=== PATIENT | male | born 1985 | race Caucasian/White ===

== ENCOUNTER 2016-05-02 18:14 | Emergency (ER) | payer MEDICAID, OTHER ==
[~2016-05-02] VITALS: Ht 177.8 cm; Wt 71.8 kg
[~2016-05-02 18:14] MED LIST: PALI156D IM
[2016-05-02 19:29] LABS: ANION GAP 13 mmol/L (8-16); CALCIUM, TOTAL 9.1 mg/dL (8.8-10.5); CARBON DIOXIDE 25 mmol/L (22-29); CHLORIDE 101 mmol/L (98-107); CREATININE 0.95 mg/dL (0.60-1.30); GLOMERULAR FILTR. RATE CALC > 60 mL/min (>60); POTASSIUM 3.5 mmol/L (3.5-5.1); SODIUM SERUM 139 mmol/L (136-145); UREA NITROGEN, BLOOD 11 mg/dL (7-18)
[2016-05-02 19:35] LABS: ALANINE AMINOTRANSFERASE 26 U/L (12-78); ALBUMIN 4.4 g/dL (3.4-5.0); ASPARTATE AMINOTRANSFERASE 60 U/L (15-37); BILIRUBIN,TOTAL 0.4 mg/dL (0.1-1.0); TOTAL PROTEIN, SERUM 8.1 g/dL (6.4-8.2)
[2016-05-02 19:53] LABS: BASOPHILS % (AUTO) 0.2 % (0.0-2.0); EOSINOPHILS % (AUTO) 0.3 % (1.0-6.0); HEMATOCRIT 37.2 % (41-53); HEMOGLOBIN 12.6 g/dL (13.5-17.5); LYMPHOCYTES # (AUTO) 2.4 K/uL (1.0-4.8); LYMPHOCYTES % (AUTO) 18.7 % (22.0-44.0); MEAN CORPUSCULAR HEMOGLOBIN 29.4 pg (26.0-34.0); MEAN CORPUSCULAR HGB CONC 33.7 G/dL (31.0-37.0); MEAN CORPUSCULAR VOLUME 87 fL (80-100); MONOCYTES # (AUTO) 0.7 K/uL (0.1-1.0); MONOCYTES % (AUTO) 5.4 % (2.0-9.0); NEUTROPHILS # (AUTO) 9.7 K/uL (1.8-7.7); NEUTROPHILS % (AUTO) 75.4 % (40.0-70.0); PLATELET COUNT (AUTO) 306 K/uL (150-450); RED BLOOD CELL COUNT(AUTO) 4.27 MIL/uL (4.50-5.90); RED CELL DISTRIBUTION WIDTH 12.6 % (11.5-14.5); WHITE BLOOD COUNT (AUTO) 12.9 K/uL (4.5-11.0)
[2016-05-02] MEDS ORDERED: HALOPERIDOL 5 MG TABLET PO ONE (21:00)
[2016-05-02] MEDS ORDERED: LORazepam 2 MG TABLET PO ONE (21:00)
[2016-05-02] MEDS ORDERED: DiphenhydrAMINE HCL 25 MG CAPSULE PO ONE (21:00)
[2016-05-02 22:10] VITALS: BP 141/89
[2016-08-09] MEDS ORDERED: RISP4 PO (03:36)
[2016-08-09] MEDS ORDERED: HALO5 PO (03:36)
[2016-08-09] MEDS ORDERED: BENZ1TAB10 PO (03:36)
[2016-08-09] MEDS ORDERED: DIVA500T35 PO (03:36)
== END 2016-05-02 22:19 | disposition home or self-care (01) ==
LOC: EMS 18:15
DX: F15.10 Other stimulant abuse, uncomplicated (principal); F41.9 Anxiety disorder, unspecified; F20.9 Schizophrenia, unspecified; F12.90 Cannabis use, unspecified, uncomplicated
CPT/HCPCS: 36415; 80053; 80307; 85025; 99284; G0480

== ENCOUNTER 2016-08-21 11:05 | Inpatient (IN) | payer MEDICARE, MEDICAID ==
[~2016-08-21] VITALS: Ht 180.3 cm; Wt 97.4 kg
[~2016-08-21 11:05] MED LIST changes: +BENZ1TAB10 PO; +DIVA500T35 PO; +HALO5 PO; +RISP4 PO
[2016-08-21 12:43] VITALS: BP 127/73
[2016-08-21 15:30] VITALS: BP 113/59
[2016-08-21 16:05] VITALS: BP 113/59
[2016-08-21] MEDS: BENZTROPINE MESYLATE 1 MG TABLET PO SCH (17:40)
[2016-08-21] MEDS: LORazepam 2 MG TABLET PO PRN (20:32)
[2016-08-21] MEDS: QUEtiapine FUMARATE 200 MG TABLET PO SCH (20:42)
[2016-08-21] MEDS ORDERED: DIVALPROEX SODIUM 500 MG DR TABLET PO SCH (21:00)
[2016-08-22 06:49] LABS: ALANINE AMINOTRANSFERASE 31 U/L (12-78); ALBUMIN 2.9 g/dL (3.4-5.0); ANION GAP 7 mmol/L (8-16); ASPARTATE AMINOTRANSFERASE 14 U/L (15-37); BILIRUBIN,TOTAL 0.2 mg/dL (0.1-1.0); CALCIUM, TOTAL 8.4 mg/dL (8.8-10.5); CARBON DIOXIDE 29 mmol/L (22-29); CHLORIDE 103 mmol/L (98-107); CHOL/HDL RATIO 8.6 (4.2-7.3); CREATINE KINASE, TOTAL 73 U/L (39-308); CREATININE 0.82 mg/dL (0.60-1.30); GLOMERULAR FILTR. RATE CALC > 60 mL/min (>60); POTASSIUM 4.1 mmol/L (3.5-5.1); SODIUM SERUM 139 mmol/L (136-145); TOTAL PROTEIN, SERUM 6.6 g/dL (6.4-8.2); UREA NITROGEN, BLOOD 16 mg/dL (7-18)
[2016-08-22 08:05] LABS: BASOPHILS # (AUTO) 0.04 K/uL (0.00-0.20); BASOPHILS % (AUTO) 0.6 % (0.0-2.0); EOSINOPHILS # (AUTO) 0.39 K/uL (0.00-0.70); EOSINOPHILS % (AUTO) 5.71 % (1.0-6.0); HEMATOCRIT 35.3 % (41-53); HEMOGLOBIN 11.8 g/dL (13.5-17.5); LYMPHOCYTES # (AUTO) 2.2 K/uL (1.0-4.8); LYMPHOCYTES % (AUTO) 31.8 % (22.0-44.0); MEAN CORPUSCULAR HEMOGLOBIN 29.6 pg (26.0-34.0); MEAN CORPUSCULAR HGB CONC 33.4 G/dL (31.0-37.0); MEAN CORPUSCULAR VOLUME 89 fL (80-100); MONOCYTES # (AUTO) 0.7 K/uL (0.1-1.0); MONOCYTES % (AUTO) 9.5 % (2.0-9.0); NEUTROPHILS # (AUTO) 3.6 K/uL (1.8-7.7); NEUTROPHILS % (AUTO) 52.5 % (40.0-70.0); PLATELET COUNT (AUTO) 495 K/uL (150-450); RED BLOOD CELL COUNT(AUTO) 3.98 MIL/uL (4.50-5.90); RED CELL DISTRIBUTION WIDTH 13.9 % (11.5-14.5); WHITE BLOOD COUNT (AUTO) 6.9 K/uL (4.5-11.0)
[2016-08-22] MEDS: QUEtiapine FUMARATE 200 MG TABLET PO SCH ×2 (08:05→21:25)
[2016-08-22] MEDS: MAGNESIUM OXIDE 400 MG TABLET PO SCH (08:05)
[2016-08-22] MEDS: BENZTROPINE MESYLATE 1 MG TABLET PO SCH ×2 (08:05→17:00)
[2016-08-22 10:55] VITALS: BP 114/78
[2016-08-22] MEDS: NICOTINE 14 MG/24 HOUR PATCH TD SCH (13:05)
[2016-08-22 16:07] VITALS: BP 104/68
[2016-08-22] MEDS: LORazepam 2 MG TABLET PO PRN (20:25)
[2016-08-23 03:36] VITALS: BP 125/61
[2016-08-23] MEDS: LORazepam 2 MG TABLET PO PRN ×3 (07:50→17:45)
[2016-08-23] MEDS: CHOLECALCIFEROL (VIT D3) 2,000 UNITS TABLET PO SCH (08:37)
[2016-08-23] MEDS: FOLIC ACID 1 MG TABLET PO SCH (08:38)
[2016-08-23] MEDS: QUEtiapine FUMARATE 200 MG TABLET PO SCH ×2 (08:38→20:04)
[2016-08-23] MEDS: BENZTROPINE MESYLATE 1 MG TABLET PO SCH ×2 (08:38→17:45)
[2016-08-23] MEDS: MAGNESIUM OXIDE 400 MG TABLET PO SCH (08:39)
[2016-08-23] MEDS ORDERED: HALOPERIDOL LACTATE 5 MG/ML VIAL IM ONE (08:45)
[2016-08-23] MEDS ORDERED: LORazepam 2 MG/ML VIAL IM ONE (08:45)
[2016-08-23] MEDS ORDERED: DiphenhydrAMINE HCL 50 MG/ML VIAL IM ONE (08:45)
[2016-08-23] MEDS ORDERED: LORazepam 2 MG/ML VIAL ONE (08:47)
[2016-08-23] MEDS ORDERED: HALOPERIDOL LACTATE 5 MG/ML VIAL ONE (08:47)
[2016-08-23] MEDS ORDERED: DiphenhydrAMINE HCL 50 MG/ML VIAL ONE (08:47)
[2016-08-23 09:00] VITALS: BP 107/62
[2016-08-23] MEDS ORDERED: MAGNESIUM OXIDE 400 MG TABLET PO SCH (09:00)
[2016-08-23] MEDS: NICOTINE 14 MG/24 HOUR PATCH TD SCH (09:01)
[2016-08-23 13:34] LABS: HEPATITIS Bs ANTIGEN SCREEN P Negative (Negative); HEPATITIS C AB SCREEN <0.1 s/co ratio (0.0-0.9)
[2016-08-23 16:58] VITALS: BP 135/80
[2016-08-23] MEDS: QUEtiapine FUMARATE 100 MG TABLET PO PRN (17:45)
[2016-08-23] MEDS: ZOLPIDEM TARTRATE 10 MG TABLET PO PRN (20:38)
[2016-08-24 08:15] VITALS: BP 112/56
[2016-08-24] MEDS: CHOLECALCIFEROL (VIT D3) 2,000 UNITS TABLET PO SCH (08:29)
[2016-08-24] MEDS: QUEtiapine FUMARATE 200 MG TABLET PO SCH ×2 (08:29→20:56)
[2016-08-24] MEDS: BENZTROPINE MESYLATE 1 MG TABLET PO SCH ×2 (08:30→17:14)
[2016-08-24] MEDS: FOLIC ACID 1 MG TABLET PO SCH (08:30)
[2016-08-24] MEDS: MAGNESIUM OXIDE 400 MG TABLET PO SCH (08:30)
[2016-08-24] MEDS: NICOTINE 14 MG/24 HOUR PATCH TD SCH (08:31)
[2016-08-24] MEDS: LORazepam 2 MG TABLET PO PRN ×2 (08:31→20:58)
[2016-08-24 16:38] VITALS: BP 123/68
[2016-08-24] MEDS: ZOLPIDEM TARTRATE 10 MG TABLET PO PRN (20:58)
[2016-08-24] MEDS: QUEtiapine FUMARATE 100 MG TABLET PO PRN (20:59)
[2016-08-25] MEDS: QUEtiapine FUMARATE 200 MG TABLET PO SCH ×2 (08:54→20:22)
[2016-08-25] MEDS: BENZTROPINE MESYLATE 1 MG TABLET PO SCH ×2 (08:54→16:50)
[2016-08-25] MEDS: FOLIC ACID 1 MG TABLET PO SCH (08:54)
[2016-08-25] MEDS: MAGNESIUM OXIDE 400 MG TABLET PO SCH (08:55)
[2016-08-25] MEDS: CHOLECALCIFEROL (VIT D3) 2,000 UNITS TABLET PO SCH (08:55)
[2016-08-25] MEDS: NICOTINE 14 MG/24 HOUR PATCH TD SCH (08:56)
[2016-08-25 09:00] VITALS: BP 125/86
[2016-08-25 18:45] VITALS: BP 115/63
[2016-08-25] MEDS: LORazepam 2 MG TABLET PO PRN (21:27)
[2016-08-26] MEDS: LORazepam 2 MG TABLET PO PRN ×2 (07:50→14:34)
[2016-08-26] MEDS: FOLIC ACID 1 MG TABLET PO SCH (08:01)
[2016-08-26] MEDS: BENZTROPINE MESYLATE 1 MG TABLET PO SCH ×2 (08:01→16:21)
[2016-08-26] MEDS: CHOLECALCIFEROL (VIT D3) 2,000 UNITS TABLET PO SCH (08:01)
[2016-08-26] MEDS: NICOTINE 14 MG/24 HOUR PATCH TD SCH (08:01)
[2016-08-26] MEDS: MAGNESIUM OXIDE 400 MG TABLET PO SCH (08:01)
[2016-08-26] MEDS: QUEtiapine FUMARATE 200 MG TABLET PO SCH ×2 (08:01→20:11)
[2016-08-26 09:00] VITALS: BP 118/67
[2016-08-26] MEDS: QUEtiapine FUMARATE 100 MG TABLET PO PRN (14:35)
[2016-08-26 21:05] VITALS: BP 138/57
[2016-08-26] MEDS: ZOLPIDEM TARTRATE 10 MG TABLET PO PRN (21:59)
[2016-08-27 05:30] VITALS: BP 123/64
[2016-08-27] MEDS: MAGNESIUM OXIDE 400 MG TABLET PO SCH (08:02)
[2016-08-27] MEDS: QUEtiapine FUMARATE 200 MG TABLET PO SCH ×2 (08:02→20:36)
[2016-08-27] MEDS: CHOLECALCIFEROL (VIT D3) 2,000 UNITS TABLET PO SCH (08:02)
[2016-08-27] MEDS: BENZTROPINE MESYLATE 1 MG TABLET PO SCH ×2 (08:02→16:54)
[2016-08-27] MEDS: NICOTINE 14 MG/24 HOUR PATCH TD SCH (08:03)
[2016-08-27] MEDS: FOLIC ACID 1 MG TABLET PO SCH (08:03)
[2016-08-27] MEDS: LORazepam 2 MG TABLET PO PRN ×2 (08:03→13:56)
[2016-08-27 08:30] VITALS: BP 158/67
[2016-08-27] MEDS ORDERED: BENZOCAINE/MENTHOL LOZENGE [8 LOZENGES/PACKET] PO PRN (09:15)
[2016-08-27] MEDS: QUEtiapine FUMARATE 100 MG TABLET PO PRN (13:56)
[2016-08-27 16:14] VITALS: BP 102/65
[2016-08-27] MEDS: ZOLPIDEM TARTRATE 10 MG TABLET PO PRN (21:07)
[2016-08-28 07:28] LABS: ALANINE AMINOTRANSFERASE 23 U/L (12-78); ALBUMIN 3.1 g/dL (3.4-5.0); ANION GAP 6 mmol/L (8-16); ASPARTATE AMINOTRANSFERASE 14 U/L (15-37); BILIRUBIN,TOTAL 0.2 mg/dL (0.1-1.0); CALCIUM, TOTAL 8.4 mg/dL (8.8-10.5); CARBON DIOXIDE 27 mmol/L (22-29); CHLORIDE 104 mmol/L (98-107); CREATINE KINASE, TOTAL 74 U/L (39-308); CREATININE 0.88 mg/dL (0.60-1.30); GLOMERULAR FILTR. RATE CALC > 60 mL/min (>60); SODIUM SERUM 137 mmol/L (136-145); TOTAL PROTEIN, SERUM 6.6 g/dL (6.4-8.2); UREA NITROGEN, BLOOD 13 mg/dL (7-18)
[2016-08-28] MEDS: LORazepam 2 MG TABLET PO PRN ×3 (07:49→20:49)
[2016-08-28] MEDS: MAGNESIUM OXIDE 400 MG TABLET PO SCH (08:45)
[2016-08-28] MEDS: NICOTINE 14 MG/24 HOUR PATCH TD SCH (08:45)
[2016-08-28] MEDS: CHOLECALCIFEROL (VIT D3) 2,000 UNITS TABLET PO SCH (08:45)
[2016-08-28] MEDS: FOLIC ACID 1 MG TABLET PO SCH (08:45)
[2016-08-28] MEDS: QUEtiapine FUMARATE 200 MG TABLET PO SCH ×2 (08:45→20:49)
[2016-08-28] MEDS: BENZTROPINE MESYLATE 1 MG TABLET PO SCH ×2 (08:45→19:23)
[2016-08-28 09:14] VITALS: BP 110/53
[2016-08-28 19:34] VITALS: BP 121/66
[2016-08-29] MEDS: QUEtiapine FUMARATE 200 MG TABLET PO SCH ×2 (08:41→20:15)
[2016-08-29] MEDS: BENZTROPINE MESYLATE 1 MG TABLET PO SCH ×2 (08:41→16:38)
[2016-08-29] MEDS: FOLIC ACID 1 MG TABLET PO SCH (08:41)
[2016-08-29] MEDS: CHOLECALCIFEROL (VIT D3) 2,000 UNITS TABLET PO SCH (08:41)
[2016-08-29] MEDS: MAGNESIUM OXIDE 400 MG TABLET PO SCH (08:41)
[2016-08-29] MEDS: NICOTINE 14 MG/24 HOUR PATCH TD SCH (08:46)
[2016-08-29] MEDS: LORazepam 2 MG TABLET PO PRN (14:18)
[2016-08-29 17:21] VITALS: BP 110/54
[2016-08-30 04:42] VITALS: BP 123/67
[2016-08-30 08:05] VITALS: BP 102/63
[2016-08-30] MEDS: NICOTINE 14 MG/24 HOUR PATCH TD SCH (08:05)
[2016-08-30] MEDS: MAGNESIUM OXIDE 400 MG TABLET PO SCH (08:05)
[2016-08-30] MEDS: CHOLECALCIFEROL (VIT D3) 2,000 UNITS TABLET PO SCH (08:05)
[2016-08-30] MEDS: FOLIC ACID 1 MG TABLET PO SCH (08:05)
[2016-08-30] MEDS: LORazepam 2 MG TABLET PO PRN ×2 (08:05→20:23)
[2016-08-30] MEDS: BENZTROPINE MESYLATE 1 MG TABLET PO SCH ×2 (08:05→16:35)
[2016-08-30] MEDS: QUEtiapine FUMARATE 200 MG TABLET PO SCH ×2 (08:05→20:23)
[2016-08-30 16:11] VITALS: BP 100/78
[2016-08-31 08:05] VITALS: BP 106/72
[2016-08-31] MEDS: FOLIC ACID 1 MG TABLET PO SCH (08:25)
[2016-08-31] MEDS: NICOTINE 14 MG/24 HOUR PATCH TD SCH (08:25)
[2016-08-31] MEDS: QUEtiapine FUMARATE 200 MG TABLET PO SCH ×2 (08:25→21:05)
[2016-08-31] MEDS: LORazepam 2 MG TABLET PO PRN (08:25)
[2016-08-31] MEDS: MAGNESIUM OXIDE 400 MG TABLET PO SCH (08:25)
[2016-08-31] MEDS: BENZTROPINE MESYLATE 1 MG TABLET PO SCH ×2 (08:25→16:22)
[2016-08-31] MEDS: CHOLECALCIFEROL (VIT D3) 2,000 UNITS TABLET PO SCH (08:26)
[2016-08-31 16:25] VITALS: BP 123/79
[2016-09-01 01:00] VITALS: BP 110/65
[2016-09-01] MEDS: MAGNESIUM OXIDE 400 MG TABLET PO SCH (08:46)
[2016-09-01] MEDS: CHOLECALCIFEROL (VIT D3) 2,000 UNITS TABLET PO SCH (08:46)
[2016-09-01] MEDS: BENZTROPINE MESYLATE 1 MG TABLET PO SCH ×2 (08:47→16:03)
[2016-09-01] MEDS: FOLIC ACID 1 MG TABLET PO SCH (08:47)
[2016-09-01] MEDS: QUEtiapine FUMARATE 200 MG TABLET PO SCH ×2 (08:47→20:09)
[2016-09-01] MEDS: NICOTINE 14 MG/24 HOUR PATCH TD SCH (08:48)
[2016-09-01 08:50] VITALS: BP 119/71
[2016-09-01] MEDS: LORazepam 2 MG TABLET PO PRN (09:44)
[2016-09-01 18:33] VITALS: BP 125/81
[2016-09-02] MEDS: ZOLPIDEM TARTRATE 10 MG TABLET PO PRN ×2 (03:03→22:48)
[2016-09-02 03:30] VITALS: BP 136/80
[2016-09-02 06:58] LABS: BASOPHILS % (AUTO) 1.2 % (0.0-2.0); EOSINOPHILS % (AUTO) 14.7 % (1.0-6.0); HEMATOCRIT 36.7 % (41-53); HEMOGLOBIN 12.6 g/dL (13.5-17.5); LYMPHOCYTES # (AUTO) 2.2 K/uL (1.0-4.8); LYMPHOCYTES % (AUTO) 31.3 % (22.0-44.0); MEAN CORPUSCULAR HEMOGLOBIN 30.3 pg (26.0-34.0); MEAN CORPUSCULAR HGB CONC 34.4 G/dL (31.0-37.0); MEAN CORPUSCULAR VOLUME 88 fL (80-100); MONOCYTES # (AUTO) 0.4 K/uL (0.1-1.0); MONOCYTES % (AUTO) 6.2 % (2.0-9.0); NEUTROPHILS # (AUTO) 3.3 K/uL (1.8-7.7); NEUTROPHILS % (AUTO) 46.6 % (40.0-70.0); PLATELET COUNT (AUTO) 304 K/uL (150-450); RED BLOOD CELL COUNT(AUTO) 4.16 MIL/uL (4.50-5.90); RED CELL DISTRIBUTION WIDTH 14.6 % (11.5-14.5)
[2016-09-02 07:09] LABS: ALANINE AMINOTRANSFERASE 32 U/L (12-78); ANION GAP 12 mmol/L (8-16); ASPARTATE AMINOTRANSFERASE 28 U/L (15-37); BILIRUBIN,TOTAL 0.2 mg/dL (0.1-1.0); CALCIUM, TOTAL 9.1 mg/dL (8.8-10.5); CARBON DIOXIDE 25 mmol/L (22-29); CHLORIDE 103 mmol/L (98-107); CREATINE KINASE, TOTAL 53 U/L (39-308); CREATININE 0.88 mg/dL (0.60-1.30); GLOMERULAR FILTR. RATE CALC > 60 mL/min (>60); POTASSIUM 4.6 mmol/L (3.5-5.1); SODIUM SERUM 140 mmol/L (136-145); UREA NITROGEN, BLOOD 15 mg/dL (7-18)
[2016-09-02 07:10] LABS: ALBUMIN 3.7 g/dL (3.4-5.0); TOTAL PROTEIN, SERUM 7.4 g/dL (6.4-8.2)
[2016-09-02 08:00] VITALS: BP 125/81
[2016-09-02] MEDS: QUEtiapine FUMARATE 200 MG TABLET PO SCH ×2 (08:15→20:06)
[2016-09-02] MEDS: LORazepam 2 MG TABLET PO PRN (08:15)
[2016-09-02] MEDS: CHOLECALCIFEROL (VIT D3) 2,000 UNITS TABLET PO SCH (08:15)
[2016-09-02] MEDS: FOLIC ACID 1 MG TABLET PO SCH (08:15)
[2016-09-02] MEDS: BENZTROPINE MESYLATE 1 MG TABLET PO SCH ×2 (08:15→17:44)
[2016-09-02] MEDS: MAGNESIUM OXIDE 400 MG TABLET PO SCH (08:15)
[2016-09-02] MEDS: NICOTINE 14 MG/24 HOUR PATCH TD SCH (08:20)
[2016-09-02 16:22] VITALS: BP 123/82
[2016-09-03] MEDS: LORazepam 2 MG TABLET PO PRN ×3 (01:19→16:01)
[2016-09-03 02:13] VITALS: BP 92/73
[2016-09-03] MEDS: QUEtiapine FUMARATE 200 MG TABLET PO SCH ×2 (09:15→20:28)
[2016-09-03] MEDS: FOLIC ACID 1 MG TABLET PO SCH (09:15)
[2016-09-03] MEDS: CHOLECALCIFEROL (VIT D3) 2,000 UNITS TABLET PO SCH (09:15)
[2016-09-03] MEDS: BENZTROPINE MESYLATE 1 MG TABLET PO SCH ×2 (09:16→16:01)
[2016-09-03] MEDS: NICOTINE 14 MG/24 HOUR PATCH TD SCH (09:16)
[2016-09-03] MEDS: MAGNESIUM OXIDE 400 MG TABLET PO SCH ×2 (09:20→16:01)
[2016-09-03 09:30] VITALS: BP 123/71
[2016-09-03 16:17] VITALS: BP 121/71
[2016-09-03] MEDS: ZOLPIDEM TARTRATE 10 MG TABLET PO PRN (22:07)
[2016-09-04] MEDS: LORazepam 2 MG TABLET PO PRN ×2 (07:55→12:38)
[2016-09-04 08:00] VITALS: BP 116/82
[2016-09-04] MEDS: BENZTROPINE MESYLATE 1 MG TABLET PO SCH ×2 (09:30→17:28)
[2016-09-04] MEDS: CHOLECALCIFEROL (VIT D3) 2,000 UNITS TABLET PO SCH (09:30)
[2016-09-04] MEDS: MAGNESIUM OXIDE 400 MG TABLET PO SCH ×2 (09:31→17:28)
[2016-09-04] MEDS: NICOTINE 14 MG/24 HOUR PATCH TD SCH (09:31)
[2016-09-04] MEDS: FOLIC ACID 1 MG TABLET PO SCH (09:31)
[2016-09-04] MEDS: QUEtiapine FUMARATE 200 MG TABLET PO SCH ×2 (09:31→21:04)
[2016-09-04 17:56] VITALS: BP 118/76
[2016-09-04] MEDS: ZOLPIDEM TARTRATE 10 MG TABLET PO PRN (23:17)
[2016-09-05 08:00] VITALS: BP 105/60
[2016-09-05] MEDS: FOLIC ACID 1 MG TABLET PO SCH (08:03)
[2016-09-05] MEDS: MAGNESIUM OXIDE 400 MG TABLET PO SCH ×2 (08:03→16:49)
[2016-09-05] MEDS: CHOLECALCIFEROL (VIT D3) 2,000 UNITS TABLET PO SCH (08:03)
[2016-09-05] MEDS: BENZTROPINE MESYLATE 1 MG TABLET PO SCH ×2 (08:03→16:49)
[2016-09-05] MEDS: LORazepam 2 MG TABLET PO PRN (08:04)
[2016-09-05] MEDS: QUEtiapine FUMARATE 200 MG TABLET PO SCH ×2 (08:04→20:36)
[2016-09-05] MEDS: NICOTINE 14 MG/24 HOUR PATCH TD SCH (08:04)
[2016-09-05 21:27] VITALS: BP 110/63
[2016-09-06 01:30] VITALS: BP 109/72
[2016-09-06 09:15] VITALS: BP 122/69
[2016-09-06] MEDS: NICOTINE 14 MG/24 HOUR PATCH TD SCH (09:57)
[2016-09-06] MEDS: QUEtiapine FUMARATE 200 MG TABLET PO SCH ×2 (09:57→20:27)
[2016-09-06] MEDS: MAGNESIUM OXIDE 400 MG TABLET PO SCH ×2 (09:58→16:29)
[2016-09-06] MEDS: CHOLECALCIFEROL (VIT D3) 2,000 UNITS TABLET PO SCH (09:58)
[2016-09-06] MEDS: FOLIC ACID 1 MG TABLET PO SCH (09:58)
[2016-09-06] MEDS: BENZTROPINE MESYLATE 1 MG TABLET PO SCH ×2 (09:58→16:29)
[2016-09-06 16:00] VITALS: BP 123/72
[2016-09-07 01:10] VITALS: BP 126/78
[2016-09-07] MEDS: ZOLPIDEM TARTRATE 10 MG TABLET PO PRN (01:14)
[2016-09-07] MEDS: LORazepam 2 MG TABLET PO PRN ×2 (01:14→16:03)
[2016-09-07 08:19] VITALS: BP 119/71
[2016-09-07] MEDS: MAGNESIUM OXIDE 400 MG TABLET PO SCH ×2 (09:47→16:03)
[2016-09-07] MEDS: BENZTROPINE MESYLATE 1 MG TABLET PO SCH ×2 (09:47→16:03)
[2016-09-07] MEDS: CHOLECALCIFEROL (VIT D3) 2,000 UNITS TABLET PO SCH (09:47)
[2016-09-07] MEDS: FOLIC ACID 1 MG TABLET PO SCH (09:47)
[2016-09-07] MEDS: QUEtiapine FUMARATE 200 MG TABLET PO SCH ×2 (09:48→20:29)
[2016-09-07] MEDS: NICOTINE 14 MG/24 HOUR PATCH TD SCH (09:48)
[2016-09-07 16:15] VITALS: BP 110/74
[2016-09-08 04:14] VITALS: BP 131/81
[2016-09-08] MEDS: LORazepam 2 MG TABLET PO PRN ×3 (04:21→16:14)
[2016-09-08] MEDS: QUEtiapine FUMARATE 200 MG TABLET PO SCH ×2 (08:04→20:14)
[2016-09-08] MEDS: BENZTROPINE MESYLATE 1 MG TABLET PO SCH ×2 (08:04→16:15)
[2016-09-08] MEDS: CHOLECALCIFEROL (VIT D3) 2,000 UNITS TABLET PO SCH (08:04)
[2016-09-08] MEDS: FOLIC ACID 1 MG TABLET PO SCH (08:04)
[2016-09-08] MEDS: MAGNESIUM OXIDE 400 MG TABLET PO SCH ×2 (08:04→16:14)
[2016-09-08] MEDS: NICOTINE 14 MG/24 HOUR PATCH TD SCH (08:08)
[2016-09-08 08:38] VITALS: BP 123/66
[2016-09-08 17:46] VITALS: BP 121/79
[2016-09-09] MEDS: NICOTINE 14 MG/24 HOUR PATCH TD SCH (09:07)
[2016-09-09] MEDS: QUEtiapine FUMARATE 200 MG TABLET PO SCH ×2 (09:08→20:14)
[2016-09-09] MEDS: CHOLECALCIFEROL (VIT D3) 2,000 UNITS TABLET PO SCH (09:08)
[2016-09-09] MEDS: FOLIC ACID 1 MG TABLET PO SCH (09:08)
[2016-09-09] MEDS: MAGNESIUM OXIDE 400 MG TABLET PO SCH ×2 (09:08→16:47)
[2016-09-09] MEDS: BENZTROPINE MESYLATE 1 MG TABLET PO SCH ×2 (09:08→16:47)
[2016-09-09 17:00] VITALS: BP 128/76
[2016-09-09] MEDS ORDERED: IBUPROFEN 600 MG TABLET PO PRN (18:45)
[2016-09-09] MEDS ORDERED: ACETAMINOPHEN 325 MG TABLET PO PRN (18:45)
[2016-09-09] MEDS: NEOMYCIN/BACITRACIN/POLYMYXIN B 30 GM OINTMENT TP PRN (20:15)
[2016-09-09] MEDS: ZOLPIDEM TARTRATE 10 MG TABLET PO PRN (22:20)
[2016-09-10 05:30] VITALS: BP 110/61
[2016-09-10] MEDS: QUEtiapine FUMARATE 200 MG TABLET PO SCH ×2 (07:55→21:56)
[2016-09-10] MEDS: FOLIC ACID 1 MG TABLET PO SCH (07:56)
[2016-09-10] MEDS: BENZTROPINE MESYLATE 1 MG TABLET PO SCH ×2 (07:56→16:26)
[2016-09-10] MEDS: CHOLECALCIFEROL (VIT D3) 2,000 UNITS TABLET PO SCH (07:56)
[2016-09-10] MEDS: MAGNESIUM OXIDE 400 MG TABLET PO SCH ×2 (07:56→16:26)
[2016-09-10] MEDS: NICOTINE 14 MG/24 HOUR PATCH TD SCH (07:56)
[2016-09-10 08:05] VITALS: BP 126/79
[2016-09-10] MEDS: LORazepam 2 MG TABLET PO PRN (08:33)
[2016-09-10 16:19] VITALS: BP 123/68
[2016-09-10] MEDS: ZOLPIDEM TARTRATE 10 MG TABLET PO PRN (21:56)
[2016-09-11 06:56] LABS: ALANINE AMINOTRANSFERASE 19 U/L (12-78); ALBUMIN 3.3 g/dL (3.4-5.0); ANION GAP 9 mmol/L (8-16); ASPARTATE AMINOTRANSFERASE 10 U/L (15-37); BILIRUBIN,TOTAL 0.3 mg/dL (0.1-1.0); CALCIUM, TOTAL 8.5 mg/dL (8.8-10.5); CARBON DIOXIDE 25 mmol/L (22-29); CHLORIDE 103 mmol/L (98-107); CREATINE KINASE, TOTAL 45 U/L (39-308); CREATININE 0.82 mg/dL (0.60-1.30); GLOMERULAR FILTR. RATE CALC > 60 mL/min (>60); POTASSIUM 3.8 mmol/L (3.5-5.1); SODIUM SERUM 137 mmol/L (136-145); TOTAL PROTEIN, SERUM 7.1 g/dL (6.4-8.2); UREA NITROGEN, BLOOD 10 mg/dL (7-18)
[2016-09-11 07:37] LABS: BASOPHILS # (AUTO) 0.03 K/uL (0.00-0.20); BASOPHILS % (AUTO) 0.3 % (0.0-2.0); EOSINOPHILS # (AUTO) 1.14 K/uL (0.00-0.70); EOSINOPHILS % (AUTO) 13.23 % (1.0-6.0); HEMATOCRIT 35.8 % (41-53); HEMOGLOBIN 11.9 g/dL (13.5-17.5); LYMPHOCYTES # (AUTO) 1.6 K/uL (1.0-4.8); LYMPHOCYTES % (AUTO) 18.6 % (22.0-44.0); MEAN CORPUSCULAR HGB CONC 33.3 G/dL (31.0-37.0); MEAN CORPUSCULAR VOLUME 90 fL (80-100); MONOCYTES # (AUTO) 0.6 K/uL (0.1-1.0); MONOCYTES % (AUTO) 7.4 % (2.0-9.0); NEUTROPHILS # (AUTO) 5.2 K/uL (1.8-7.7); NEUTROPHILS % (AUTO) 60.5 % (40.0-70.0); PLATELET COUNT (AUTO) 202 K/uL (150-450); RED BLOOD CELL COUNT(AUTO) 3.98 MIL/uL (4.50-5.90); RED CELL DISTRIBUTION WIDTH 14.8 % (11.5-14.5); WHITE BLOOD COUNT (AUTO) 8.6 K/uL (4.5-11.0)
[2016-09-11 08:00] VITALS: BP 135/88
[2016-09-11] MEDS: FOLIC ACID 1 MG TABLET PO SCH (08:48)
[2016-09-11] MEDS: CHOLECALCIFEROL (VIT D3) 2,000 UNITS TABLET PO SCH (08:48)
[2016-09-11] MEDS: MAGNESIUM OXIDE 400 MG TABLET PO SCH ×2 (08:48→16:35)
[2016-09-11] MEDS: BENZTROPINE MESYLATE 1 MG TABLET PO SCH ×2 (08:48→16:35)
[2016-09-11] MEDS: QUEtiapine FUMARATE 200 MG TABLET PO SCH ×2 (08:48→20:31)
[2016-09-11] MEDS: NICOTINE 14 MG/24 HOUR PATCH TD SCH (08:49)
[2016-09-11] MEDS: LORazepam 2 MG TABLET PO PRN (08:52)
[2016-09-11 17:21] VITALS: BP 126/75
[2016-09-12] MEDS: ZOLPIDEM TARTRATE 10 MG TABLET PO PRN (01:09)
[2016-09-12 02:47] VITALS: BP 114/70
[2016-09-12 08:50] VITALS: BP 130/65
[2016-09-12] MEDS: MAGNESIUM OXIDE 400 MG TABLET PO SCH ×2 (09:18→16:03)
[2016-09-12] MEDS: BENZTROPINE MESYLATE 1 MG TABLET PO SCH ×2 (09:18→16:05)
[2016-09-12] MEDS: FOLIC ACID 1 MG TABLET PO SCH (09:18)
[2016-09-12] MEDS: QUEtiapine FUMARATE 200 MG TABLET PO SCH ×2 (09:18→20:15)
[2016-09-12] MEDS: CHOLECALCIFEROL (VIT D3) 2,000 UNITS TABLET PO SCH (09:18)
[2016-09-12] MEDS: NICOTINE 14 MG/24 HOUR PATCH TD SCH (09:19)
[2016-09-12 16:36] VITALS: BP 119/71
[2016-09-13 02:00] VITALS: BP 110/75
[2016-09-13] MEDS: ZOLPIDEM TARTRATE 10 MG TABLET PO PRN (02:53)
[2016-09-13] MEDS: QUEtiapine FUMARATE 100 MG TABLET PO PRN (02:53)
[2016-09-13] MEDS: MAGNESIUM OXIDE 400 MG TABLET PO SCH ×2 (08:21→16:25)
[2016-09-13] MEDS: NICOTINE 14 MG/24 HOUR PATCH TD SCH (08:21)
[2016-09-13] MEDS: QUEtiapine FUMARATE 200 MG TABLET PO SCH ×2 (08:21→20:25)
[2016-09-13] MEDS: BENZTROPINE MESYLATE 1 MG TABLET PO SCH ×2 (08:21→16:25)
[2016-09-13] MEDS: FOLIC ACID 1 MG TABLET PO SCH (08:21)
[2016-09-13] MEDS: CHOLECALCIFEROL (VIT D3) 2,000 UNITS TABLET PO SCH (08:21)
[2016-09-13 09:23] VITALS: BP 128/76
[2016-09-13 16:55] VITALS: BP 139/80
[2016-09-14 05:00] VITALS: BP 132/76
[2016-09-14] MEDS: MAGNESIUM OXIDE 400 MG TABLET PO SCH ×2 (08:14→16:21)
[2016-09-14] MEDS: FOLIC ACID 1 MG TABLET PO SCH (08:15)
[2016-09-14] MEDS: QUEtiapine FUMARATE 200 MG TABLET PO SCH ×2 (08:15→20:28)
[2016-09-14] MEDS: BENZTROPINE MESYLATE 1 MG TABLET PO SCH ×2 (08:15→16:21)
[2016-09-14] MEDS: CHOLECALCIFEROL (VIT D3) 2,000 UNITS TABLET PO SCH (08:15)
[2016-09-14] MEDS: NICOTINE 14 MG/24 HOUR PATCH TD SCH (08:26)
[2016-09-14 09:02] VITALS: BP 128/84
[2016-09-14] MEDS: LORazepam 2 MG TABLET PO PRN (16:25)
[2016-09-14 21:21] VITALS: BP 141/92
[2016-09-15 08:00] VITALS: BP_SYST 79
[2016-09-15] MEDS: NICOTINE 14 MG/24 HOUR PATCH TD SCH (08:48)
[2016-09-15] MEDS: MAGNESIUM OXIDE 400 MG TABLET PO SCH ×2 (08:48→16:20)
[2016-09-15] MEDS: BENZTROPINE MESYLATE 1 MG TABLET PO SCH ×2 (08:48→16:20)
[2016-09-15] MEDS: CHOLECALCIFEROL (VIT D3) 2,000 UNITS TABLET PO SCH (08:48)
[2016-09-15] MEDS: QUEtiapine FUMARATE 200 MG TABLET PO SCH ×2 (08:48→20:19)
[2016-09-15] MEDS: FOLIC ACID 1 MG TABLET PO SCH (08:49)
[2016-09-15 17:00] VITALS: BP 135/91
[2016-09-16] MEDS: ZOLPIDEM TARTRATE 10 MG TABLET PO PRN (00:48)
[2016-09-16 02:06] VITALS: BP 127/81
[2016-09-16] MEDS: NICOTINE 14 MG/24 HOUR PATCH TD SCH (08:32)
[2016-09-16] MEDS: QUEtiapine FUMARATE 200 MG TABLET PO SCH ×2 (08:33→20:17)
[2016-09-16] MEDS: MAGNESIUM OXIDE 400 MG TABLET PO SCH ×2 (08:33→16:02)
[2016-09-16] MEDS: FOLIC ACID 1 MG TABLET PO SCH (08:33)
[2016-09-16] MEDS: CHOLECALCIFEROL (VIT D3) 2,000 UNITS TABLET PO SCH (08:33)
[2016-09-16] MEDS: BENZTROPINE MESYLATE 1 MG TABLET PO SCH ×2 (08:34→16:02)
[2016-09-16 09:51] VITALS: BP 119/97
[2016-09-16 16:15] VITALS: BP 114/67
[2016-09-16] MEDS: LORazepam 2 MG TABLET PO PRN (16:35)
[2016-09-16] MEDS: QUEtiapine FUMARATE 100 MG TABLET PO PRN (16:35)
[2016-09-17 08:15] VITALS: BP 103/60
[2016-09-17] MEDS: BENZTROPINE MESYLATE 1 MG TABLET PO SCH ×2 (08:22→16:13)
[2016-09-17] MEDS: FOLIC ACID 1 MG TABLET PO SCH (08:22)
[2016-09-17] MEDS: MAGNESIUM OXIDE 400 MG TABLET PO SCH ×2 (08:22→16:13)
[2016-09-17] MEDS: CHOLECALCIFEROL (VIT D3) 2,000 UNITS TABLET PO SCH (08:23)
[2016-09-17] MEDS: QUEtiapine FUMARATE 200 MG TABLET PO SCH ×2 (08:23→21:15)
[2016-09-17] MEDS: NICOTINE 14 MG/24 HOUR PATCH TD SCH (09:00)
[2016-09-17] MEDS: LORazepam 2 MG TABLET PO PRN (16:13)
[2016-09-17 16:25] VITALS: BP 125/70
[2016-09-18 08:03] VITALS: BP 115/64
[2016-09-18] MEDS: CHOLECALCIFEROL (VIT D3) 2,000 UNITS TABLET PO SCH (08:55)
[2016-09-18] MEDS: BENZTROPINE MESYLATE 1 MG TABLET PO SCH ×2 (08:55→16:07)
[2016-09-18] MEDS: FOLIC ACID 1 MG TABLET PO SCH (08:55)
[2016-09-18] MEDS: QUEtiapine FUMARATE 200 MG TABLET PO SCH ×2 (08:55→20:30)
[2016-09-18] MEDS: MAGNESIUM OXIDE 400 MG TABLET PO SCH ×2 (08:56→16:07)
[2016-09-18] MEDS: NICOTINE 14 MG/24 HOUR PATCH TD SCH (08:56)
[2016-09-18 17:06] VITALS: BP 123/87
[2016-09-19 08:30] VITALS: BP 132/79
[2016-09-19] MEDS: CHOLECALCIFEROL (VIT D3) 2,000 UNITS TABLET PO SCH (08:42)
[2016-09-19] MEDS: QUEtiapine FUMARATE 200 MG TABLET PO SCH ×2 (08:42→20:15)
[2016-09-19] MEDS: BENZTROPINE MESYLATE 1 MG TABLET PO SCH ×2 (08:42→16:21)
[2016-09-19] MEDS: MAGNESIUM OXIDE 400 MG TABLET PO SCH ×2 (08:42→16:20)
[2016-09-19] MEDS: NICOTINE 14 MG/24 HOUR PATCH TD SCH (08:43)
[2016-09-19] MEDS: FOLIC ACID 1 MG TABLET PO SCH (08:43)
[2016-09-19] MEDS: LORazepam 2 MG TABLET PO PRN (08:58)
[2016-09-19 16:44] VITALS: BP 121/77
[2016-09-20] MEDS: ZOLPIDEM TARTRATE 10 MG TABLET PO PRN (00:55)
[2016-09-20 01:50] VITALS: BP 114/82
[2016-09-20 08:56] VITALS: BP 133/91
[2016-09-20] MEDS: CHOLECALCIFEROL (VIT D3) 2,000 UNITS TABLET PO SCH (09:14)
[2016-09-20] MEDS: FOLIC ACID 1 MG TABLET PO SCH (09:14)
[2016-09-20] MEDS: MAGNESIUM OXIDE 400 MG TABLET PO SCH ×2 (09:14→16:07)
[2016-09-20] MEDS: QUEtiapine FUMARATE 200 MG TABLET PO SCH ×2 (09:15→20:44)
[2016-09-20] MEDS: BENZTROPINE MESYLATE 1 MG TABLET PO SCH ×2 (09:15→16:07)
[2016-09-20] MEDS: NICOTINE 14 MG/24 HOUR PATCH TD SCH (09:17)
[2016-09-20 16:15] VITALS: BP 125/70
[2016-09-21] MEDS: LORazepam 2 MG TABLET PO PRN (00:34)
[2016-09-21 01:26] VITALS: BP 115/69
[2016-09-21 08:31] VITALS: BP 113/57
[2016-09-21] MEDS: BENZTROPINE MESYLATE 1 MG TABLET PO SCH ×2 (08:46→16:39)
[2016-09-21] MEDS: FOLIC ACID 1 MG TABLET PO SCH (08:47)
[2016-09-21] MEDS: CHOLECALCIFEROL (VIT D3) 2,000 UNITS TABLET PO SCH (08:47)
[2016-09-21] MEDS: QUEtiapine FUMARATE 200 MG TABLET PO SCH ×2 (08:47→20:24)
[2016-09-21] MEDS: MAGNESIUM OXIDE 400 MG TABLET PO SCH ×2 (08:47→16:39)
[2016-09-21] MEDS: NICOTINE 14 MG/24 HOUR PATCH TD SCH (08:51)
[2016-09-21] MEDS: NEOMYCIN/BACITRACIN/POLYMYXIN B 30 GM OINTMENT TP PRN (08:53)
[2016-09-21 16:15] VITALS: BP 140/90
[2016-09-22] MEDS: NEOMYCIN/BACITRACIN/POLYMYXIN B 30 GM OINTMENT TP PRN (02:52)
[2016-09-22 06:20] VITALS: BP 111/68
[2016-09-22 08:16] VITALS: BP 138/89
[2016-09-22] MEDS: BENZTROPINE MESYLATE 1 MG TABLET PO SCH ×2 (08:26→16:56)
[2016-09-22] MEDS: FOLIC ACID 1 MG TABLET PO SCH (08:26)
[2016-09-22] MEDS: QUEtiapine FUMARATE 200 MG TABLET PO SCH ×2 (08:26→20:36)
[2016-09-22] MEDS: CHOLECALCIFEROL (VIT D3) 2,000 UNITS TABLET PO SCH (08:26)
[2016-09-22] MEDS: MAGNESIUM OXIDE 400 MG TABLET PO SCH ×2 (08:27→16:56)
[2016-09-22] MEDS: NICOTINE 14 MG/24 HOUR PATCH TD SCH (08:27)
[2016-09-22 16:16] VITALS: BP 116/61
[2016-09-23 06:00] VITALS: BP 121/71
[2016-09-23] MEDS: NICOTINE 14 MG/24 HOUR PATCH TD SCH (08:28)
[2016-09-23] MEDS: FOLIC ACID 1 MG TABLET PO SCH (08:29)
[2016-09-23] MEDS: QUEtiapine FUMARATE 200 MG TABLET PO SCH ×2 (08:29→20:32)
[2016-09-23] MEDS: BENZTROPINE MESYLATE 1 MG TABLET PO SCH ×2 (08:29→16:07)
[2016-09-23] MEDS: CHOLECALCIFEROL (VIT D3) 2,000 UNITS TABLET PO SCH (08:29)
[2016-09-23] MEDS: MAGNESIUM OXIDE 400 MG TABLET PO SCH ×2 (08:29→16:07)
[2016-09-23 08:35] VITALS: BP 125/72
[2016-09-23 17:00] VITALS: BP 122/73
[2016-09-24 06:30] VITALS: BP 135/84
[2016-09-24] MEDS: BENZTROPINE MESYLATE 1 MG TABLET PO SCH (08:17)
[2016-09-24] MEDS: FOLIC ACID 1 MG TABLET PO SCH (08:17)
[2016-09-24] MEDS: MAGNESIUM OXIDE 400 MG TABLET PO SCH (08:17)
[2016-09-24] MEDS: NICOTINE 14 MG/24 HOUR PATCH TD SCH (08:17)
[2016-09-24] MEDS: CHOLECALCIFEROL (VIT D3) 2,000 UNITS TABLET PO SCH (08:17)
[2016-09-24] MEDS: QUEtiapine FUMARATE 200 MG TABLET PO SCH (08:17)
[2016-09-24 08:30] VITALS: BP 138/90
[2016-09-24] MEDS ORDERED: QUET200T PO (08:40)
[2016-09-24] MEDS ORDERED: CHOL200016 PO (08:41)
[2016-09-24] MEDS ORDERED: FOLI1 PO (08:43)
[2016-09-24] MEDS ORDERED: MAGOX PO (08:44)
== END 2016-09-24 14:50 | disposition home or self-care (01) | DRG 885 ==
LOC: 3EX 11:05
DX: F25.1 Schizoaffective disorder, depressive type (principal); E43 Unspecified severe protein-calorie malnutrition; J96.90 Respiratory failure, unspecified, unspecified whether with hypoxia or hypercapnia; N17.9 Acute kidney failure, unspecified; M62.82 Rhabdomyolysis; Z99.11 Dependence on respirator [ventilator] status; F12.90 Cannabis use, unspecified, uncomplicated; R62.7 Adult failure to thrive; D64.9 Anemia, unspecified; E53.8 Deficiency of other specified B group vitamins; E55.9 Vitamin D deficiency, unspecified; E83.42 Hypomagnesemia; F15.90 Other stimulant use, unspecified, uncomplicated; F22 Delusional disorders; R13.10 Dysphagia, unspecified; Z72.0 Tobacco use; Z79.899 Other long term (current) drug therapy; Z81.8 Family history of other mental and behavioral disorders; Z91.19 Patient's noncompliance with other medical treatment and regimen
CPT/HCPCS: 80074; 82306; 82607; 82746; 83735; 87081; 92526; 92610; J1200; J1630; J2060

== ENCOUNTER 2019-02-03 10:33 | Inpatient (IN) | payer MEDICARE, OTHER ==
[~2019-02-03] VITALS: Ht 170.2 cm; Wt 66.9 kg
[~2019-02-03 10:33] MED LIST changes: +CHOL200059 PO; -DIVA500T35 PO; +FOLI1 PO; -HALO5 PO; +MAGOX PO; -PALI156D IM; +QUET200T PO; -RISP4 PO
[2019-02-03] MEDS ORDERED: SODIUM CHLORIDE 0.9% 1,000 ML IV ONE ×4 (11:00→14:45)
[2019-02-03 11:01] LABS: GLUCOSE,POINT OF CARE 89 MG/DL (70-110)
[2019-02-03 11:15] LABS: BASOPHILS % (AUTO) 0.5 % (0.0-2.0); EOSINOPHILS % (AUTO) 1.8 % (1.0-6.0); HEMOGLOBIN 12.9 g/dL (13.5-17.5); LYMPHOCYTES # (AUTO) 1.8 K/uL (1.0-4.8); LYMPHOCYTES % (AUTO) 26.9 % (22.0-44.0); MEAN CORPUSCULAR HEMOGLOBIN 28.2 pg (26.0-34.0); MEAN CORPUSCULAR VOLUME 86 fL (80-100); MONOCYTES # (AUTO) 0.6 K/uL (0.1-1.0); MONOCYTES % (AUTO) 8.4 % (2.0-9.0); NEUTROPHILS # (AUTO) 4.2 K/uL (1.8-7.7); NEUTROPHILS % (AUTO) 62.4 % (40.0-70.0); PLATELET COUNT (AUTO) 256 K/uL (150-450); RED BLOOD CELL COUNT(AUTO) 4.56 MIL/uL (4.50-5.90); RED CELL DISTRIBUTION WIDTH 14.5 % (11.5-14.5)
[2019-02-03 11:24] LABS: ANION GAP 9 mmol/L (8-16); CALCIUM, TOTAL 9.1 mg/dL (8.8-10.5); CARBON DIOXIDE 27 mmol/L (22-29); CHLORIDE 103 mmol/L (98-107); CREATININE 1.03 mg/dL (0.60-1.30); GLOMERULAR FILTR. RATE CALC > 60 mL/min (>60); GLUCOSE,RANDOM 94 mg/dL (70-110); POTASSIUM 4.1 mmol/L (3.5-5.1); SODIUM SERUM 139 mmol/L (136-145); UREA NITROGEN, BLOOD 12 mg/dL (7-18)
[2019-02-03 11:49] LABS: ALANINE AMINOTRANSFERASE 20 U/L (12-78); ALBUMIN 3.8 g/dL (3.4-5.0); ALKALINE PHOSPHATASE 86 U/L (46-116); ASPARTATE AMINOTRANSFERASE 36 U/L (15-37); BILIRUBIN,TOTAL 0.5 mg/dL (0.1-1.0); TOTAL PROTEIN, SERUM 8.3 g/dL (6.4-8.2)
[2019-02-03 11:50] LABS: CREATINE KINASE, TOTAL ONLY 2183 U/L (39-308); VALPROIC ACID < 3 mcg/mL (50-100)
[2019-02-03] MEDS ORDERED: LORazepam 2 MG/ML VIAL IVP ONE (12:00)
[2019-02-03 12:44] LABS: AMPHET/METH SCREEN,URINE POSITIVE (NEGATIVE); BARBITURATE SCREEN, URINE NEGATIVE (NEGATIVE); BENZODIAZEPINES SCREEN,URINE NEGATIVE (NEGATIVE); CANNABINOID SCREEN,URINE POSITIVE (NEGATIVE); COCAINE SCREEN,URINE NEGATIVE (NEGATIVE); METHADONE SCREEN, URINE NEGATIVE (NEGATIVE); OPIATE SCREEN,URINE POSITIVE (NEGATIVE); PHENCYCLIDINE SCREEN,URINE NEGATIVE (NEGATIVE)
[2019-02-03] MEDS ORDERED: ACETAMINOPHEN 325 MG TABLET PO PRN ×2 (13:15→14:45)
[2019-02-03] MEDS ORDERED: ONDANSETRON HCL 4 MG/2 ML VIAL IVP PRN ×2 (13:15→14:45)
[2019-02-03] MEDS ORDERED: HYDROCODONE/ACETAMINOPHEN 5-325 MG TABLET PO PRN (14:45)
[2019-02-03] MEDS ORDERED: MAGNESIUM HYDROXIDE SUSPENSION 30 ML UDCUP PO PRN (14:45)
[2019-02-03] MEDS ORDERED: ZOLPIDEM TARTRATE 5 MG TABLET PO PRN (14:45)
[2019-02-03] MEDS ORDERED: BISACODYL 10 MG RECTAL RECTAL SUPPOSITORY PR PRN (14:45)
[2019-02-03] MEDS ORDERED: MORPHINE SULFATE 2 MG/ML SYRINGE IVP PRN (14:45)
[2019-02-03] MEDS: HEPARIN SODIUM,PORCINE 5,000 UNITS/ML VIAL SQ SCH (17:31)
[2019-02-03 19:24] VITALS: BP 107/84
[2019-02-03] MEDS: LORazepam 2 MG/ML VIAL IVP PRN (19:44)
[2019-02-03] MEDS: DOCUSATE SODIUM 100 MG CAPSULE PO SCH (21:00)
[2019-02-03 23:14] VITALS: BP 123/70
[2019-02-04] MEDS: HEPARIN SODIUM,PORCINE 5,000 UNITS/ML VIAL SQ SCH ×4 (00:23→22:56)
[2019-02-04] MEDS: LORazepam 2 MG/ML VIAL IVP PRN (02:00)
[2019-02-04 06:38] VITALS: BP 101/69
[2019-02-04 07:25] VITALS: BP 100/71
[2019-02-04 07:30] LABS: BASOPHILS % (AUTO) 0.3 % (0.0-2.0); EOSINOPHILS % (AUTO) 6.1 % (1.0-6.0); HEMATOCRIT 38.2 % (41-53); HEMOGLOBIN 12.9 g/dL (13.5-17.5); LYMPHOCYTES # (AUTO) 1.9 K/uL (1.0-4.8); LYMPHOCYTES % (AUTO) 25.8 % (22.0-44.0); MEAN CORPUSCULAR HEMOGLOBIN 29.1 pg (26.0-34.0); MEAN CORPUSCULAR HGB CONC 33.8 G/dL (31.0-37.0); MEAN CORPUSCULAR VOLUME 86 fL (80-100); MONOCYTES # (AUTO) 0.5 K/uL (0.1-1.0); MONOCYTES % (AUTO) 6.4 % (2.0-9.0); NEUTROPHILS # (AUTO) 4.5 K/uL (1.8-7.7); NEUTROPHILS % (AUTO) 61.4 % (40.0-70.0); PLATELET COUNT (AUTO) 212 K/uL (150-450); RED BLOOD CELL COUNT(AUTO) 4.44 MIL/uL (4.50-5.90); RED CELL DISTRIBUTION WIDTH 15.1 % (11.5-14.5)
[2019-02-04 08:04] LABS: ANION GAP 13 mmol/L (8-16); CALCIUM, TOTAL 8.5 mg/dL (8.8-10.5); CARBON DIOXIDE 25 mmol/L (22-29); CHLORIDE 107 mmol/L (98-107); CREATINE KINASE, TOTAL ONLY 1173 U/L (39-308); CREATININE 0.84 mg/dL (0.60-1.30); GLOMERULAR FILTR. RATE CALC > 60 mL/min (>60); GLUCOSE,RANDOM 62 mg/dL (70-110); POTASSIUM 3.9 mmol/L (3.5-5.1); SODIUM SERUM 145 mmol/L (136-145); UREA NITROGEN, BLOOD 9 mg/dL (7-18)
[2019-02-04] MEDS: DOCUSATE SODIUM 100 MG CAPSULE PO SCH ×2 (09:00→19:59)
[2019-02-04] MEDS: PANTOPRAZOLE SODIUM 40 MG DR TABLET PO SCH (09:00)
[2019-02-04 11:44] VITALS: BP 112/56
[2019-02-04] MEDS ORDERED: MAGNESIUM SULFATE 2 GM, MVI, ADULT NO.1 WITH VIT K 10 ML, THIAMINE HCL 100 MG, FOLIC AC... IV ONE ×5 (12:00)
[2019-02-04 16:49] VITALS: BP 103/61
[2019-02-04 20:04] VITALS: BP 105/66
[2019-02-04 23:46] VITALS: BP_SYST 126; BP_SYST 156; BP_DIAS 68
[2019-02-05 06:18] VITALS: BP 104/53
[2019-02-05] MEDS: DOCUSATE SODIUM 100 MG CAPSULE PO SCH ×2 (07:59→21:00)
[2019-02-05] MEDS: HEPARIN SODIUM,PORCINE 5,000 UNITS/ML VIAL SQ SCH ×2 (07:59→16:14)
[2019-02-05] MEDS: PANTOPRAZOLE SODIUM 40 MG DR TABLET PO SCH (07:59)
[2019-02-05 08:26] VITALS: BP 95/53
[2019-02-05 11:10] VITALS: BP 95/53
[2019-02-05 15:35] VITALS: BP 104/45
[2019-02-05 19:31] VITALS: BP 95/49
[2019-02-06 00:13] VITALS: BP 90/46
[2019-02-06 06:02] VITALS: BP 93/35
[2019-02-06 06:42] VITALS: BP 113/58
[2019-02-06 08:22] VITALS: BP 137/71
[2019-02-06] MEDS: HEPARIN SODIUM,PORCINE 5,000 UNITS/ML VIAL SQ SCH ×2 (10:19)
[2019-02-06] MEDS: PANTOPRAZOLE SODIUM 40 MG DR TABLET PO SCH (10:20)
[2019-02-06] MEDS: DOCUSATE SODIUM 100 MG CAPSULE PO SCH (10:21)
== END 2019-02-06 14:50 | disposition home or self-care (01) | DRG 557 ==
LOC: EMS 10:35 → 5S 15:18
PROVIDERS: ADMIT Internal Medicine; ATTEND Internal Medicine
DX: M62.82 Rhabdomyolysis (principal); G92 Toxic encephalopathy; E44.0 Moderate protein-calorie malnutrition; F15.10 Other stimulant abuse, uncomplicated; D64.9 Anemia, unspecified; F20.9 Schizophrenia, unspecified; E55.9 Vitamin D deficiency, unspecified; R53.81 Other malaise; Z68.23 Body mass index [BMI] 23.0-23.9, adult
CPT/HCPCS: 97116; 97162; 97530; 99291; G0480; J1644; J2060; J3411; J3475; J3490; J7030

== ENCOUNTER 2019-07-23 14:28 | Inpatient (IN) | payer MEDICARE, MEDICAID ==
[~2019-07-23] VITALS: Ht 172.7 cm; Wt 57.8 kg
[2019-07-23 15:31] LABS: BASOPHILS % (AUTO) 0.3 % (0.0-2.0); EOSINOPHILS % (AUTO) 2.2 % (1.0-6.0); HEMATOCRIT 36.7 % (41-53); HEMOGLOBIN 12.5 g/dL (13.5-17.5); LYMPHOCYTES # (AUTO) 1.6 K/uL (1.0-4.8); LYMPHOCYTES % (AUTO) 21.9 % (22.0-44.0); MEAN CORPUSCULAR HEMOGLOBIN 29.6 pg (26.0-34.0); MEAN CORPUSCULAR HGB CONC 34.2 G/dL (31.0-37.0); MEAN CORPUSCULAR VOLUME 87 fL (80-100); MONOCYTES # (AUTO) 0.5 K/uL (0.1-1.0); NEUTROPHILS # (AUTO) 4.9 K/uL (1.8-7.7); NEUTROPHILS % (AUTO) 68.6 % (40.0-70.0); PLATELET COUNT (AUTO) 302 K/uL (150-450); RED BLOOD CELL COUNT(AUTO) 4.25 MIL/uL (4.50-5.90); RED CELL DISTRIBUTION WIDTH 13.5 % (11.5-14.5)
[2019-07-23 15:42] LABS: ANION GAP 14 mmol/L (8-16); CALCIUM, TOTAL 9.4 mg/dL (8.8-10.5); CARBON DIOXIDE 22 mmol/L (22-29); CHLORIDE 104 mmol/L (98-107); CREATININE 0.87 mg/dL (0.60-1.30); GLOMERULAR FILTR. RATE CALC > 60 mL/min (>60); GLUCOSE,RANDOM 91 mg/dL (70-110); POTASSIUM 3.9 mmol/L (3.5-5.1); SODIUM SERUM 140 mmol/L (136-145); UREA NITROGEN, BLOOD 14 mg/dL (7-18)
[2019-07-23 15:49] LABS: ALANINE AMINOTRANSFERASE 18 U/L (12-78); ALBUMIN 4.1 g/dL (3.4-5.0); ALKALINE PHOSPHATASE 92 U/L (46-116); ASPARTATE AMINOTRANSFERASE 17 U/L (15-37); BILIRUBIN,TOTAL 0.5 mg/dL (0.1-1.0); TOTAL PROTEIN, SERUM 7.8 g/dL (6.4-8.2)
[2019-07-23 16:00] LABS: AMPHET/METH SCREEN,URINE POSITIVE (NEGATIVE); BARBITURATE SCREEN, URINE NEGATIVE (NEGATIVE); BENZODIAZEPINES SCREEN,URINE NEGATIVE (NEGATIVE); CANNABINOID SCREEN,URINE POSITIVE (NEGATIVE); COCAINE SCREEN,URINE NEGATIVE (NEGATIVE); METHADONE SCREEN, URINE NEGATIVE (NEGATIVE); OPIATE SCREEN,URINE NEGATIVE (NEGATIVE)
[2019-07-23 16:01] LABS: PHENCYCLIDINE SCREEN,URINE NEGATIVE (NEGATIVE)
[2019-07-23] MEDS ORDERED: QUEtiapine FUMARATE 100 MG TABLET PO ONE (16:45)
[2019-07-23] MEDS ORDERED: HALOPERIDOL LACTATE 5 MG/ML VIAL IM ONE (18:00)
[2019-07-23] MEDS ORDERED: DiphenhydrAMINE HCL 50 MG/ML VIAL IM ONE (18:00)
[2019-07-23] MEDS ORDERED: LORazepam 2 MG/ML VIAL IM ONE (18:00)
[2019-07-23] MEDS ORDERED: ZOLPIDEM TARTRATE 10 MG TABLET PO PRN (18:15)
[2019-07-23] MEDS ORDERED: MAGNESIUM HYDROXIDE SUSPENSION 30 ML UDCUP PO PRN (20:15)
[2019-07-23] MEDS ORDERED: ONDANSETRON HCL 4 MG TABLET PO PRN (20:15)
[2019-07-23] MEDS ORDERED: ACETAMINOPHEN 325 MG TABLET PO PRN (20:15)
[2019-07-23 20:53] VITALS: BP 118/77
[2019-07-24] MEDS: LORazepam 2 MG TABLET PO PRN ×2 (06:33→15:53)
[2019-07-24] MEDS: QUEtiapine FUMARATE 100 MG TABLET PO PRN ×2 (06:33→15:54)
[2019-07-24 08:00] LABS: CHOL/HDL RATIO 2.1 (4.2-7.3)
[2019-07-24] MEDS ORDERED: MAGNESIUM HYDROXIDE SUSPENSION 30 ML UDCUP PO PRN (10:15)
[2019-07-24] MEDS ORDERED: PETROLATUM,WHITE 28 GM JELLY TP PRN (10:15)
[2019-07-24] MEDS ORDERED: MAG HYDROX/AL HYDROX/SIMETH ES 30 ML SUSPENSION UDCUP PO PRN (10:15)
[2019-07-24] MEDS ORDERED: ONDANSETRON HCL 4 MG TABLET PO PRN (10:15)
[2019-07-24] MEDS ORDERED: ALBUTEROL SULFATE HFA 90 MCG/PUFF 8 GM INHALER IH PRN (10:15)
[2019-07-24] MEDS ORDERED: LOPERAMIDE HCL 2 MG CAPSULE PO PRN (10:15)
[2019-07-24] MEDS ORDERED: GuaiFENesin/D-METHORPHAN [SUGAR-FREE] 200-20MG/10 ML SYRUP UDCUP PO PRN (10:15)
[2019-07-24] MEDS ORDERED: DOCUSATE SODIUM 100 MG CAPSULE PO PRN (10:15)
[2019-07-24] MEDS ORDERED: ACETAMINOPHEN 325 MG TABLET PO PRN (10:15)
[2019-07-24] MEDS ORDERED: NICOTINE 14 MG/24 HOUR PATCH TD PRN (10:15)
[2019-07-24] MEDS ORDERED: CloNIDine HCL 0.1 MG TABLET PO PRN (10:15)
[2019-07-24] MEDS: OLANZapine 5 MG TABLET PO SCH (15:53)
[2019-07-25] MEDS: LORazepam 2 MG TABLET PO PRN ×2 (08:16→13:19)
[2019-07-25] MEDS: QUEtiapine FUMARATE 100 MG TABLET PO PRN ×2 (08:16→13:19)
[2019-07-25] MEDS: OLANZapine 5 MG TABLET PO SCH (08:16)
[2019-07-25] MEDS: OLANZapine 10 MG TABLET PO SCH (16:05)
[2019-07-25] MEDS: IBUPROFEN 400 MG TABLET PO PRN (16:07)
[2019-07-25 16:23] VITALS: BP 122/72
[2019-07-26] MEDS: QUEtiapine FUMARATE 100 MG TABLET PO PRN (10:08)
[2019-07-26] MEDS: LORazepam 2 MG TABLET PO PRN ×2 (10:08→16:09)
[2019-07-26] MEDS: OLANZapine 10 MG TABLET PO SCH ×2 (10:09→16:08)
[2019-07-26 16:11] VITALS: BP 113/69
[2019-07-27] MEDS: QUEtiapine FUMARATE 100 MG TABLET PO PRN (09:14)
[2019-07-27] MEDS: LORazepam 2 MG TABLET PO PRN ×2 (09:14→17:09)
[2019-07-27] MEDS: OLANZapine 10 MG TABLET PO SCH ×2 (09:14→17:09)
[2019-07-27] MEDS: GABAPENTIN 300 MG CAPSULE PO SCH (17:09)
[2019-07-27 19:07] VITALS: BP 122/75
[2019-07-28 08:44] VITALS: BP 109/65
[2019-07-28] MEDS: GABAPENTIN 300 MG CAPSULE PO SCH ×2 (09:37→16:49)
[2019-07-28] MEDS: LORazepam 2 MG TABLET PO PRN ×2 (09:37→16:18)
[2019-07-28] MEDS: QUEtiapine FUMARATE 100 MG TABLET PO PRN (09:37)
[2019-07-28] MEDS: OLANZapine 10 MG TABLET PO SCH ×2 (09:37→16:50)
[2019-07-29] MEDS: OLANZapine 10 MG TABLET PO SCH ×2 (10:24→15:55)
[2019-07-29] MEDS: LORazepam 2 MG TABLET PO PRN ×2 (10:24→15:55)
[2019-07-29] MEDS: QUEtiapine FUMARATE 100 MG TABLET PO PRN (10:24)
[2019-07-29] MEDS: GABAPENTIN 300 MG CAPSULE PO SCH ×2 (10:24→15:55)
[2019-07-29 22:16] VITALS: BP 112/65
[2019-07-30 08:45] VITALS: BP 102/63
[2019-07-30] MEDS: GABAPENTIN 300 MG CAPSULE PO SCH ×2 (09:45→16:18)
[2019-07-30] MEDS: IBUPROFEN 400 MG TABLET PO PRN (09:45)
[2019-07-30] MEDS: OLANZapine 10 MG TABLET PO SCH ×2 (09:45→16:19)
[2019-07-30] MEDS: LORazepam 2 MG TABLET PO PRN ×2 (09:45→16:19)
[2019-07-30] MEDS: QUEtiapine FUMARATE 100 MG TABLET PO PRN (11:12)
[2019-07-31 08:28] VITALS: BP 102/60
[2019-07-31] MEDS: OLANZapine 10 MG TABLET PO SCH ×2 (08:40→16:17)
[2019-07-31] MEDS: GABAPENTIN 300 MG CAPSULE PO SCH ×2 (08:40→16:17)
[2019-07-31] MEDS: LORazepam 2 MG TABLET PO PRN ×2 (08:40→15:54)
[2019-07-31 16:58] VITALS: BP 120/70
[2019-08-01] MEDS: LORazepam 2 MG TABLET PO PRN ×2 (08:09→16:18)
[2019-08-01] MEDS: OLANZapine 10 MG TABLET PO SCH ×2 (08:09→16:39)
[2019-08-01] MEDS: GABAPENTIN 300 MG CAPSULE PO SCH ×2 (08:09→16:39)
[2019-08-01 10:06] VITALS: BP 108/62
[2019-08-01 16:28] VITALS: BP 113/65
[2019-08-02] MEDS: OLANZapine 10 MG TABLET PO SCH ×2 (09:39→16:04)
[2019-08-02] MEDS: LORazepam 2 MG TABLET PO PRN ×2 (09:39→15:41)
[2019-08-02] MEDS: GABAPENTIN 300 MG CAPSULE PO SCH ×2 (09:39→16:04)
[2019-08-02] MEDS: QUEtiapine FUMARATE 100 MG TABLET PO PRN ×2 (09:39→16:40)
[2019-08-02 17:13] VITALS: BP 98/60
[2019-08-03] MEDS: OLANZapine 10 MG TABLET PO SCH (08:00)
[2019-08-03] MEDS: QUEtiapine FUMARATE 100 MG TABLET PO PRN ×2 (08:01→13:12)
[2019-08-03] MEDS: GABAPENTIN 300 MG CAPSULE PO SCH (08:01)
[2019-08-03 09:28] VITALS: BP 119/60
[2019-08-03] MEDS: LORazepam 2 MG TABLET PO PRN ×2 (13:14→18:59)
[2019-08-03] MEDS ORDERED: PALIPERIDONE PALMITATE 234 MG/1.5 ML SYRINGE IM SCH (15:00)
[2019-08-03] MEDS: TRIHEXYPHENIDYL HCL 5 MG TABLET PO SCH (16:25)
[2019-08-03] MEDS: LITHIUM CARBONATE 300 MG CAPSULE PO SCH (16:26)
[2019-08-03] MEDS: PROPRANOLOL HCL 10 MG TABLET PO SCH (16:26)
[2019-08-03 16:52] VITALS: BP 122/63
[2019-08-03] MEDS: CloZAPine 100 MG TABLET PO SCH (20:01)
[2019-08-04] MEDS: FOLIC ACID 1 MG TABLET PO SCH (08:55)
[2019-08-04] MEDS: PROPRANOLOL HCL 10 MG TABLET PO SCH ×3 (08:56→16:47)
[2019-08-04] MEDS: TRIHEXYPHENIDYL HCL 5 MG TABLET PO SCH ×2 (08:56→16:46)
[2019-08-04] MEDS: MULTIVITAMINS WITH MINERALS, THERAPEUTIC TABLET PO SCH (08:56)
[2019-08-04] MEDS: CloZAPine 100 MG TABLET PO SCH ×2 (08:56→20:12)
[2019-08-04] MEDS: THIAMINE 100 MG TABLET PO SCH (08:56)
[2019-08-04] MEDS: LITHIUM CARBONATE 300 MG CAPSULE PO SCH ×2 (08:56→16:46)
[2019-08-04] MEDS: LORazepam 2 MG TABLET PO PRN (10:10)
[2019-08-04 16:47] VITALS: BP 103/60
[2019-08-05 08:00] VITALS: BP 99/59
[2019-08-05] MEDS: FOLIC ACID 1 MG TABLET PO SCH (09:08)
[2019-08-05] MEDS: CloZAPine 100 MG TABLET PO SCH ×2 (09:08→20:59)
[2019-08-05] MEDS: PROPRANOLOL HCL 10 MG TABLET PO SCH ×3 (09:08→16:31)
[2019-08-05] MEDS: LORazepam 2 MG TABLET PO PRN ×3 (09:09→17:25)
[2019-08-05] MEDS: TRIHEXYPHENIDYL HCL 5 MG TABLET PO SCH ×2 (09:09→16:30)
[2019-08-05] MEDS: LITHIUM CARBONATE 300 MG CAPSULE PO SCH ×2 (09:09→16:30)
[2019-08-05] MEDS: QUEtiapine FUMARATE 100 MG TABLET PO PRN ×3 (09:09→17:32)
[2019-08-05] MEDS: THIAMINE 100 MG TABLET PO SCH (09:09)
[2019-08-05] MEDS: MULTIVITAMINS WITH MINERALS, THERAPEUTIC TABLET PO SCH (09:09)
[2019-08-05 17:01] VITALS: BP 129/83
[2019-08-06] MEDS: ZOLPIDEM TARTRATE 10 MG TABLET PO PRN (00:07)
[2019-08-06] MEDS: LITHIUM CARBONATE 300 MG CAPSULE PO SCH ×2 (09:38→16:47)
[2019-08-06] MEDS: LORazepam 2 MG TABLET PO PRN ×2 (09:38→14:14)
[2019-08-06] MEDS: TRIHEXYPHENIDYL HCL 5 MG TABLET PO SCH ×2 (09:38→16:47)
[2019-08-06] MEDS: QUEtiapine FUMARATE 100 MG TABLET PO PRN ×3 (09:38→18:14)
[2019-08-06] MEDS: FOLIC ACID 1 MG TABLET PO SCH (09:38)
[2019-08-06] MEDS: THIAMINE 100 MG TABLET PO SCH (09:38)
[2019-08-06] MEDS: MULTIVITAMINS WITH MINERALS, THERAPEUTIC TABLET PO SCH (09:39)
[2019-08-06] MEDS: PROPRANOLOL HCL 10 MG TABLET PO SCH ×3 (09:39→16:47)
[2019-08-06] MEDS: CloZAPine 100 MG TABLET PO SCH ×2 (09:39→21:05)
[2019-08-06 19:10] VITALS: BP 114/72
[2019-08-07] MEDS: MULTIVITAMINS WITH MINERALS, THERAPEUTIC TABLET PO SCH (08:03)
[2019-08-07] MEDS: FOLIC ACID 1 MG TABLET PO SCH (08:03)
[2019-08-07] MEDS: THIAMINE 100 MG TABLET PO SCH (08:03)
[2019-08-07] MEDS: PROPRANOLOL HCL 10 MG TABLET PO SCH ×3 (08:03→16:08)
[2019-08-07] MEDS: LITHIUM CARBONATE 300 MG CAPSULE PO SCH ×2 (08:03→16:08)
[2019-08-07] MEDS: TRIHEXYPHENIDYL HCL 5 MG TABLET PO SCH ×2 (08:03→16:08)
[2019-08-07] MEDS: QUEtiapine FUMARATE 100 MG TABLET PO PRN ×2 (08:03→16:08)
[2019-08-07] MEDS: CloZAPine 100 MG TABLET PO SCH ×2 (08:03→20:21)
[2019-08-07] MEDS: LORazepam 2 MG TABLET PO PRN (08:03)
[2019-08-07 16:38] VITALS: BP 123/81
[2019-08-07] MEDS: ZOLPIDEM TARTRATE 10 MG TABLET PO PRN (20:17)
[2019-08-08 09:37] VITALS: BP 133/87
[2019-08-08] MEDS: CloZAPine 100 MG TABLET PO SCH ×2 (09:38→20:26)
[2019-08-08] MEDS: LITHIUM CARBONATE 300 MG CAPSULE PO SCH ×2 (09:38→16:19)
[2019-08-08] MEDS: THIAMINE 100 MG TABLET PO SCH (09:39)
[2019-08-08] MEDS: PROPRANOLOL HCL 10 MG TABLET PO SCH ×3 (09:42→16:24)
[2019-08-08] MEDS: TRIHEXYPHENIDYL HCL 5 MG TABLET PO SCH ×2 (09:42→16:19)
[2019-08-08] MEDS: FOLIC ACID 1 MG TABLET PO SCH (09:42)
[2019-08-08] MEDS: MULTIVITAMINS WITH MINERALS, THERAPEUTIC TABLET PO SCH (09:43)
[2019-08-08 12:40] VITALS: BP 118/69
[2019-08-08 16:43] VITALS: BP 105/60
[2019-08-09] MEDS: LITHIUM CARBONATE 300 MG CAPSULE PO SCH ×2 (10:20→16:05)
[2019-08-09] MEDS: PROPRANOLOL HCL 10 MG TABLET PO SCH ×3 (10:20→16:05)
[2019-08-09] MEDS: FOLIC ACID 1 MG TABLET PO SCH (10:20)
[2019-08-09] MEDS: THIAMINE 100 MG TABLET PO SCH (10:20)
[2019-08-09] MEDS: TRIHEXYPHENIDYL HCL 5 MG TABLET PO SCH ×2 (10:20→16:05)
[2019-08-09] MEDS: CloZAPine 100 MG TABLET PO SCH ×2 (10:20→20:40)
[2019-08-09] MEDS: MULTIVITAMINS WITH MINERALS, THERAPEUTIC TABLET PO SCH (10:21)
[2019-08-09 16:32] VITALS: BP 116/62
[2019-08-10] MEDS: TRIHEXYPHENIDYL HCL 5 MG TABLET PO SCH ×2 (09:09→16:10)
[2019-08-10] MEDS: LITHIUM CARBONATE 300 MG CAPSULE PO SCH ×2 (09:09→16:10)
[2019-08-10] MEDS: THIAMINE 100 MG TABLET PO SCH (09:09)
[2019-08-10] MEDS: CloZAPine 100 MG TABLET PO SCH (09:09)
[2019-08-10] MEDS: FOLIC ACID 1 MG TABLET PO SCH (09:09)
[2019-08-10] MEDS: PROPRANOLOL HCL 10 MG TABLET PO SCH ×3 (09:10→16:10)
[2019-08-10] MEDS: MULTIVITAMINS WITH MINERALS, THERAPEUTIC TABLET PO SCH (09:11)
[2019-08-10] MEDS ORDERED: TRIH5TAB2 PO (13:09)
[2019-08-10] MEDS ORDERED: FOLI0.4T92 PO (13:09)
[2019-08-10] MEDS ORDERED: PALI234D IM (13:09)
[2019-08-10] MEDS ORDERED: THIA100T80 PO (13:09)
[2019-08-10] MEDS ORDERED: LITH300C3 PO (13:09)
[2019-08-10] MEDS ORDERED: CLOZ100T32 PO ×2 (13:09)
[2019-08-10] MEDS ORDERED: PROP10TA73 PO (13:09)
[2019-08-10] MEDS ORDERED: MULT-723 PO (13:09)
[2019-08-10 16:10] VITALS: BP 112/70
[2019-08-10 16:43] LABS: BASOPHILS % (AUTO) 0.6 % (0.0-2.0); EOSINOPHILS % (AUTO) 11.5 % (1.0-6.0); HEMATOCRIT 39.6 % (41-53); HEMOGLOBIN 13.3 g/dL (13.5-17.5); LYMPHOCYTES # (AUTO) 2.5 K/uL (1.0-4.8); LYMPHOCYTES % (AUTO) 29.3 % (22.0-44.0); MEAN CORPUSCULAR HEMOGLOBIN 29.4 pg (26.0-34.0); MEAN CORPUSCULAR HGB CONC 33.6 G/dL (31.0-37.0); MEAN CORPUSCULAR VOLUME 87 fL (80-100); MONOCYTES # (AUTO) 0.5 K/uL (0.1-1.0); MONOCYTES % (AUTO) 5.6 % (2.0-9.0); NEUTROPHILS # (AUTO) 4.5 K/uL (1.8-7.7); PLATELET COUNT (AUTO) 253 K/uL (150-450); RED BLOOD CELL COUNT(AUTO) 4.53 MIL/uL (4.50-5.90); RED CELL DISTRIBUTION WIDTH 13.4 % (11.5-14.5)
== END 2019-08-10 18:30 | disposition home or self-care (01) | DRG 885 ==
LOC: EMS 14:30 → 3EI 18:30 → 3EC 07-24 08:33
PROVIDERS: ADMIT Psychiatry & Neurology Psychiatry; ATTEND Psychiatry & Neurology Psychiatry
DX: F20.0 Paranoid schizophrenia (principal); Z59.0 Homelessness; D64.9 Anemia, unspecified; K59.00 Constipation, unspecified; F10.10 Alcohol abuse, uncomplicated; Y90.9 Presence of alcohol in blood, level not specified; G44.209 Tension-type headache, unspecified, not intractable; F15.10 Other stimulant abuse, uncomplicated; F17.210 Nicotine dependence, cigarettes, uncomplicated; Z91.19 Patient's noncompliance with other medical treatment and regimen; F12.90 Cannabis use, unspecified, uncomplicated
CPT/HCPCS: G0480; J1200; J2060